=== PATIENT | female | born 1945 | race Caucasian/White ===

== ENCOUNTER → 2019-07-06 | Outpatient (CLI) | payer MEDICARE ==
[~2019-07-06] MED LIST: ALPRAZOLAM0.5 MG PO; AMIODARONE HCL200 MG PO; AMIODARONE PO; ATENOLOL50 MG PO; BYSTOLIC20 MG PO; COUMADIN2.5 MG PO; EC ASPIRIN325 MG; NORVASC5 MG PO; PRAVASTATIN SOD40 MG PO; PROPAFENONE HC225 MG PO; RYTHMOL225 MG PO; WARFARIN SODIU2.5 MG PO; Z RYTHMOL PO; Z.0.ATENOLOL50 MG PO; Z.0.BYSTOLIC10 MG PO; Z.0.COUMADIN10 MG; Z.0.COUMADIN2.5 MG PO; Z.0.COUMADIN5 MG PO; Z.0.XANAX0.25 MG PO
--- NOTE | 2019-07-07 09:02 | Diagnostic Imaging Report ---
Exam: Bone mineral density study. History: Osteopenia. Comparison: None Discussion: Evaluation of the left hip, and lumbar spine was performed utilizing DEXA Hologic bone densitometer. The study is technically adequate. Left hip total bone mineral density: 0.749gm/cm2, T-score is -1.6, Z-score is 0.2. Left hip femoral neck bone mineral density: 0.625gm/cm2, T-score is -2.0, Z-score is 0.1. Lumbar spine total bone mineral density:0.959gm/cm2, T-score is-0.8, Z-score is 1.6. Impression: 1. Osteopenia of the left hip, fracture risk is increased 2. Normal bone mineral density of the lumbar spine, fracture risk is not increased. Least significant change (LSC) for bone mineral density as provided by rush seater is 0.023 g/cm2 for lumbar spine and 0.027 g/cm2 for total hip. 10 -year fracture risk per WHO Fracture Risk Assessment Tool (FRAX) for: Major osteoporotic fracture is 21.0% Hip fracture is 12.0% The above fracture probability is calculated for an untreated patient. Fracture probably may be lower if the patient has received treatment. All treatment decisions require clinical judgment and consideration of individual patient factors, including patient preferences, comorbidities, previous drug use and risk factors not captured in the FRAX model (e.g. frailty, falls, vitamin D deficiency, increased bone turnover, interval significant decline in BMD). The patient's fracture risk is compared to an age-matched control. Medical evaluation for secondary causes of low bone bone mineral density may be appropriate. Correlate clinically for the necessity and timing of the next bone mineral density study. Signed by: Dr. Faheem Sanders M.D. on 07/07/2019 8:59 AM
--- NOTE | 2019-07-11 09:10 | Diagnostic Imaging Report ---
#[id number] - MGSCRBIL #BILATERAL DIGITAL SCREENING MAMMOGRAM WITH CAD: 07/06/2019 CLINICAL: Routine screening. No prior exams were available for comparison. Current study contains 7 films. The tissue of both breasts is heterogeneously dense. This may lower the sensitivity of mammography. Current study was also evaluated with a Computer Aided Detection (CAD) system. Benign appearing calcifications are noted bilaterally. There are clustered calcifications in the right breast central to the nipple anterior depth. There also are clustered calcifications in the right breast central to the nipple middle depth. There is a 1.7 cm oval mass in the left breast at 8 o'clock anterior depth. No other significant masses or calcifications are seen in either breast. IMPRESSION: INCOMPLETE: NEEDS ADDITIONAL IMAGING EVALUATION The clustered calcifications in the right breast central to the nipple anterior depth are indeterminate. Magnification views are recommended unless previous films are received and show no significant interval change. The clustered calcifications in the right breast central to the nipple middle depth are indeterminate. Magnification views are recommended unless previous films are received and show no significant interval change. The 1.7 cm oval mass in the left breast at 8 o'clock anterior depth is indeterminate. An ultrasound is recommended unless previous films are received and show no significant interval change. The patient will be contacted by the Mammography Department to schedule this appointment. HANNAH walker/kyra:07/08/2019 09:36:27 [employer]: Danya MENDIETA)(Cassandra), [facility] letter sent: Additional Imaging Needed Mammogram BI-RADS: 0 Indeterminate
== END ==
LOC: MAMMO 13:37
PROVIDERS: ATTEND Obstetrics & Gynecology
DX: Z12.31 Encounter for screening mammogram for malignant neoplasm of breast (principal); M85.88 Other specified disorders of bone density and structure, other site
CPT/HCPCS: 77067; 77080

== ENCOUNTER 2020-07-05 22:36 | Emergency (ER) | payer MEDICARE ==
[~2020-07-05] VITALS: Ht 165.1 cm; Wt 104.3 kg
--- NOTE | 2020-07-05 22:44 | Emergency Department Note ---
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 Any updates have been documented here. 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 Other Surgery: CARDIAC ABLATION Other Last Tetanus: UNKNOWN Review of Systems Review of Systems Constitutional: Reports fever, Reports malaise Respiratory: Reports cough Physical Exam Related Data Allergies: Coded Allergies: Penicillins (Verified Allergy, Unknown, 09/21/09) dabigatran etexilate mesylate (Verified Allergy, Unknown, 07/05/20) minocycline (Verified Allergy, Unknown, MAKES HER SIC, 07/05/20) strawberry (Verified Allergy, Unknown, 07/07/12) Uncoded Allergies: STERIODS (Allergy, Unknown, SWELLING, 07/05/20) STEROIDS (Allergy, Unknown, 09/21/09) Physical Exam CONSTITUTIONAL Constitutional: Present morbidly obese, Present ill appearing HENT HENT: Present normocephalic, Present atraumatic, Present oropharynx clear/moist, Present nose normal HENT L/R: Present left ext ear normal, Present right ext ear normal EYES Eyes: Reports PERRL, Reports conjunctivae normal NECK Neck: Present ROM normal PULMONARY Pulmonary: Present effort normal, Present breath sounds normal CARDIOVASCULAR Cardiovascular: Present regular rhythm, Present heart sounds normal, Present capillary refill normal, Present normal rate GASTROINTESTINAL Abdominal: Present soft, Present nontender, Present bowel sounds normal GENITOURINARY Genitourinary: Present exam deferred SKIN Skin: Present warm, Present dry MUSCULOSKELETAL Musculoskeletal: Present edema NEUROLOGICAL Neurological: Present alert, Present oriented x 3, Present no gross motor or sensory deficits PSYCHOLOGICAL Psychological: Present mood/affect normal, Present judgement normal Results Imaging Imaging results reviewed: Yes Impressions [place] [id number] Patient Name: JILLIAN OLIVEIRA MR #: [id number] : 1945 Age/Sex: 74/F Req #: [id number] Adm Physician: Ordered by: HANNAH OVALLE DO Report #: [id number] Location: ER Room/Bed: Procedure: [id number] DX/CHEST SINGLE (PORTABLE) Exam Date: 07/05/20 Exam Time: 2299 REPORT STATUS: Signed EXAMINATION: CHEST SINGLE (PORTABLE) INDICATION: ^Y ^ERMD ORDER ^[id number] ^2299 ^Y COMPARISON: None available FINDINGS: AP view TUBES and LINES: Dual-lead left chest wall cardiac device in place. LUNGS: Lungs are well inflated. Mild central vascular congestion. PLEURA: No significant pleural effusion or pneumothorax. HEART AND MEDIASTINUM: The cardiac silhouette is borderline in size. BONES AND SOFT TISSUES: No acute osseous lesion. Soft tissues are unremarkable. UPPER ABDOMEN: No free air under the diaphragm. IMPRESSION: Borderline enlarged cardiac silhouette and central vascular congestion. Underlying pneumonia in the perihilar regions cannot be excluded in the appropriate clinical context. Signed by: Dr. Dontae Serrato MD on 07/05/2020 11:35 PM Dictated By: DONTAE SERRATO MD 34 Transcribed By: ALEX on 07/05/202334 COPY TO: HANNAH OVALLE DO~ Assessment & Plan Medical Decision Making MDM Diff Dx: COVID-19 infection, pna, sepsis, acs, PE Assessment & Plan Final Impression: (1) URI (upper respiratory infection) Depart Disposition: HOME, SELF-intermediate Meds Reported Medications Nebivolol Hcl (BYSTOLIC) 20 Mg Tablet, 20 MG PO DAILY 03/25/16 Propafenone Hcl (RYTHMOL) 225 Mg Tablet, 225 MG PO TID 03/25/16 Atenolol (ATENOLOL) 50 Mg Tablet, 50 MG PO DAILY 03/25/16 Alprazolam (ALPRAZOLAM) 0.5 Mg Tablet, 0.5 MG PO DAILY PRN for ANXIETY, TAB 03/25/16 Warfarin Sodium (WARFARIN SODIUM) 2.5 Mg Tablet, 2.5 MG PO DAILY, #30 TAB 03/25/16 Amlodipine Besylate (NORVASC) 5 Mg Tab, 5 MG PO DAILY, #30 TAB 03/25/16 Medications in the ED Aspirin 81 mg PRN ONCE PO ; Start 07/05/20 at 22:45; Stop 07/05/20 at 22:46; Status HANNAH CARRION DO Jul 05, 2020 22:44
[2020-07-05] MEDS ORDERED: ASPIRIN 81 MG CHEW TAB PO ONE (22:45)
[2020-07-05 23:29] LABS: BASOPHILS # (AUTO) 0.1 (0.0-0.1); BASOPHILS % 0.9 % (0.0-1.0); EOSINOPHILS # (AUTO) 0.2 (0.0-0.4); EOSINOPHILS % 2.1 % (0.0-6.0); HEMATOCRIT 44.1 % (34.2-44.1); LYMPHOCYTES # (AUTO) 1.3 (1.0-3.2); LYMPHOCYTES % 13.2 % (18.0-39.1); MEAN CORPUSCULAR HEMOGLOBIN 30.7 pg (28-32); MEAN CORPUSCULAR VOLUME 90.2 fL (81-99); MONOCYTES # (AUTO) 0.6 (0.2-0.8); MONOCYTES % 6.3 % (4.4-11.3); NEUTROPHILS # (AUTO) 7.8 (2.1-6.9); NEUTROPHILS % 77.1 % (38.7-80.0); PLATELET COUNT 230 x10e3/uL (140-360); RED BLOOD COUNT 4.89 x10e6/uL (3.6-5.1); RED CELL DISTRIBUTION WIDTH 11.9 % (11.7-14.4)
--- NOTE | 2020-07-05 23:38 | Diagnostic Imaging Report ---
EXAMINATION: CHEST SINGLE (PORTABLE) INDICATION: ^Y ^ERMD ORDER ^[id number] ^2300 ^Y COMPARISON: None available FINDINGS: AP view TUBES and LINES: Dual-lead left chest wall cardiac device in place. LUNGS: Lungs are well inflated. Mild central vascular congestion. PLEURA: No significant pleural effusion or pneumothorax. HEART AND MEDIASTINUM: The cardiac silhouette is borderline in size. BONES AND SOFT TISSUES: No acute osseous lesion. Soft tissues are unremarkable. UPPER ABDOMEN: No free air under the diaphragm. IMPRESSION: Borderline enlarged cardiac silhouette and central vascular congestion. Underlying pneumonia in the perihilar regions cannot be excluded in the appropriate clinical context. Signed by: Dr. Dontae Schmid MD on 07/05/2020 11:35 PM
[2020-07-05 23:49] LABS: ALBUMIN 4.4 g/dL (3.5-5.0); ALBUMIN/GLOBULIN RATIO 1.6 (0.8-2.0); ANION GAP 15.3 mmol/L (8-16); CALCIUM 9.9 mg/dL (8.4-10.2); CREATININE, SERUM 0.98 mg/dL (0.57-1.11); POTASSIUM 4.3 mmol/L (3.5-5.1)
[2020-07-05 23:55] LABS: CREATINE KINASE MB 1.9 ng/mL (0-5.0)
[2020-07-06 00:24] VITALS: BP 165/84
== END 2020-07-06 00:38 | disposition home or self-care (01) ==
LOC: ER 22:54
DX: J06.9 Acute upper respiratory infection, unspecified (principal); R06.00 Dyspnea, unspecified; Z11.59 Encounter for screening for other viral diseases
CPT/HCPCS: 36415; 71045; 80053; 82550; 82553; 83880; 84484; 85025; 99284; U0002

== ENCOUNTER → 2020-08-22 | Outpatient (CLI) | payer MEDICARE | LOC: MAMMO 12:25 | PROVIDERS: ATTEND Obstetrics & Gynecology | DX: Z12.31 Encounter for screening mammogram for malignant neoplasm of breast (principal) | CPT/HCPCS: 77067 ==

== ENCOUNTER → 2021-07-02 | Outpatient (CLI) | payer MEDICARE ==
[~2021-07-02] MED LIST changes: +IOPAMIDOL 370 MG/ML 200 ML INFUS..BTL INJ ONE; +METOPROLOL TARTRATE INJ 1 MG/ML VIAL ONE; +NITROGLYCERIN 0.4 MG SUBL ONE; +SODIUM CHLORIDE 0.9% 100 ML ONE
== END ==
LOC: CT 08:15
PROVIDERS: ATTEND Internal Medicine Cardiovascular Disease
DX: R06.02 Shortness of breath (principal); R94.39 Abnormal result of other cardiovascular function study; I47.2 Ventricular tachycardia; I48.20 Chronic atrial fibrillation, unspecified
CPT/HCPCS: 75574; J7050; Q9967

== ENCOUNTER → 2022-11-27 | Outpatient (CLI) | payer MEDICARE ==
[~2022-11-27] MED LIST changes: -IOPAMIDOL 370 MG/ML 200 ML INFUS..BTL INJ ONE; -METOPROLOL TARTRATE INJ 1 MG/ML VIAL ONE; -NITROGLYCERIN 0.4 MG SUBL ONE; -SODIUM CHLORIDE 0.9% 100 ML ONE
== END ==
LOC: MAMMO 13:51
PROVIDERS: ATTEND Obstetrics & Gynecology
DX: Z12.31 Encounter for screening mammogram for malignant neoplasm of breast (principal)
CPT/HCPCS: 77067

== ENCOUNTER 2024-08-30 00:43 | Emergency (ER) | payer MEDICARE ==
[~2024-08-30] VITALS: Ht 165.1 cm; Wt 96.6 kg
[~2024-08-30 00:43] MED LIST changes: +AMBIEN10 MG PO; +ASPIRIN EC81 MG PO; +KEFLEX125 MG/5 M PO; +LISINOPRIL10 MG PO
[2024-08-30] MEDS: ACETAMINOPHEN 325 MG TAB PO ONE (02:56)
[2024-08-30 03:55] VITALS: BP 120/60; PULSE 65; RESP 18; TEMP 98.6; O2SAT 98
== END 2024-08-30 03:55 | disposition home or self-care (01) ==
LOC: FSED 00:54
DX: R50.9 Fever, unspecified (principal); R03.0 Elevated blood-pressure reading, without diagnosis of hypertension; I48.91 Unspecified atrial fibrillation; I50.9 Heart failure, unspecified; I10 Essential (primary) hypertension; E78.5 Hyperlipidemia, unspecified; R05.9 Cough, unspecified; Z11.52 Encounter for screening for COVID-19; R94.31 Abnormal electrocardiogram [ECG] [EKG]; Z95.810 Presence of automatic (implantable) cardiac defibrillator
CPT/HCPCS: 0223U; 70450; 71046; 80053; 81003; 82553; 83880; 84484; 85025; 87400; 87420; 93005; 99283

== ENCOUNTER 2025-06-03 15:41 | Observation (INO) | payer MEDICARE ==
[~2025-06-03] VITALS: Ht 165.1 cm; Wt 93.9 kg
[2025-06-03] MEDS ORDERED: SODIUM CHLORIDE 0.9% 1000ML 1,000 ML IV SCH (17:00)
[2025-06-03 18:03] VITALS: PULSE 63; RESP 18; TEMP 97.6
[2025-06-03] MEDS ORDERED: ULTRAM 50MG50 MG PO (21:46)
[2025-06-03 21:55] VITALS: BP 156/69; PULSE 64; RESP 18; TEMP 98.7; O2SAT 99
[2025-06-03 22:00] VITALS: BP 156/69; PULSE 64; RESP 18; TEMP 98.7; O2SAT 99
[2025-06-03] MEDS: LISINOPRIL 10 MG TAB PO SCH (23:08)
[2025-06-04 03:01] VITALS: BP 161/64; PULSE 67; RESP 18; TEMP 97.8; O2SAT 100
[2025-06-04] MEDS ORDERED: ACETAMINOPHEN 325 MG TAB PO PRN (06:00)
[2025-06-04] MEDS: HYDRALAZINE HCL 20 MG/ML VIAL IV PRN (06:21)
[2025-06-04 08:35] LABS: BASOPHILS % 0.9 % (0.0-1.0); EOSINOPHILS % 3.1 % (0.0-6.0); LYMPHOCYTES % 17.6 % (18.0-39.1); MONOCYTES % 9.7 % (4.4-11.3); NEUTROPHILS % 68.4 % (38.7-80.0); RED CELL DISTRIBUTION WIDTH 12.5 % (11.7-14.4)
[2025-06-04 09:20] VITALS: BP 164/78; PULSE 85; RESP 20; TEMP 97.8; O2SAT 98
[2025-06-04 10:04] LABS: EST GLOMERULAR FILTRATION RATE 75.0 ML/MIN (>=60)
[2025-06-04] MEDS: ATENOLOL 50 MG TAB PO SCH ×2 (10:57→17:00)
[2025-06-04 12:52] VITALS: BP 165/73; PULSE 86; RESP 20; TEMP 97.8; O2SAT 98
[2025-06-04] MEDS ORDERED: ZOLPIDEM TARTRATE 5 MG TAB PO PRN (14:45)
[2025-06-04] MEDS ORDERED: ALPRAZOLAM 0.5 MG TAB PO PRN (14:45)
[2025-06-04 16:15] VITALS: BP 143/69; PULSE 78; RESP 20; TEMP 97.9; O2SAT 100
[2025-06-04] MEDS: TRAMADOL HCL 50 MG TAB PO PRN (16:39)
[2025-06-04] MEDS: AMLODIPINE BESYLATE 5 MG TAB PO SCH (16:39)
[2025-06-04 20:00] VITALS: BP 128/59; PULSE 65; RESP 20; TEMP 98.1; O2SAT 100
[2025-06-04 21:00] VITALS: BP 133/88; PULSE 65; RESP 20; TEMP 98.1; O2SAT 100
[2025-06-04] MEDS ORDERED: ATENOLOL 50 MG TAB PO SCH (21:00)
[2025-06-05] VITALS: BP 131/53; PULSE 63; RESP 18; TEMP 98.4; O2SAT 99
[2025-06-05 08:00] VITALS: BP 133/70; PULSE 66; RESP 18; TEMP 98.5; O2SAT 100
[2025-06-05] MEDS: ASPIRIN 81 MG ENTERIC COATED PO SCH (08:23)
[2025-06-05 11:00] VITALS: BP 135/62; PULSE 68; RESP 16; TEMP 98.5; O2SAT 99
[2025-06-05] MEDS ORDERED: ATENOLOL 50 MG TAB PO SCH (17:00)
== END 2025-06-05 13:30 | disposition home or self-care (01) ==
LOC: FSED 16:04 → ERHOLD 16:14 → INTOOBSV 16:14 → ERHOLD 17:59 → MED/SURG2 21:22
PROVIDERS: ADMIT Internal Medicine; ATTEND Internal Medicine
DX: R55 Syncope and collapse (principal); I48.20 Chronic atrial fibrillation, unspecified; I11.0 Hypertensive heart disease with heart failure; I50.32 Chronic diastolic (congestive) heart failure; Z95.0 Presence of cardiac pacemaker; E66.9 Obesity, unspecified; Z68.34 Body mass index [BMI] 34.0-34.9, adult; I35.0 Nonrheumatic aortic (valve) stenosis; M47.9 Spondylosis, unspecified; M19.012 Primary osteoarthritis, left shoulder; M19.011 Primary osteoarthritis, right shoulder; R26.89 Other abnormalities of gait and mobility; K44.9 Diaphragmatic hernia without obstruction or gangrene; G47.00 Insomnia, unspecified; Z79.82 Long term (current) use of aspirin
CPT/HCPCS: 36415 ×2; 70450; 80053 ×2; 82550 ×2; 84484 ×3; 85025 ×2; 93005; 93306; 99284; G0378 ×3; J0360; J7030

== ENCOUNTER 2025-07-24 16:00 | Emergency (ER) | payer MEDICARE ==
[~2025-07-24] VITALS: Ht 165.1 cm; Wt 93.9 kg
[~2025-07-24 16:00] MED LIST changes: +ULTRAM 50MG50 MG PO
[2025-07-24 17:00] VITALS: PULSE 80; RESP 18; TEMP 98.5
[2025-07-24 17:47] LABS: BASOPHILS % 0.5 % (0.0-1.0); EOSINOPHILS % 0.9 % (0.0-6.0); LYMPHOCYTES % 10.1 % (18.0-39.1); MONOCYTES % 6.4 % (4.4-11.3); NEUTROPHILS % 81.8 % (38.7-80.0); RED CELL DISTRIBUTION WIDTH 12.4 % (11.7-14.4)
[2025-07-24 17:59] LABS: INR 1.04
[2025-07-24 18:10] LABS: EST GLOMERULAR FILTRATION RATE 64.0 ML/MIN (>=60)
[2025-07-24] MEDS ORDERED: ATENOLOL 100 MG TAB PO ONE (20:30)
[2025-07-24] MEDS: METOPROLOL TARTRATE INJ 1 MG/ML VIAL IV ONE (20:47)
[2025-07-24] MEDS: ATENOLOL 50 MG TAB PO ONE (20:52)
[2025-07-24 23:22] VITALS: BP 132/70; PULSE 115; RESP 20; O2SAT 99
== END 2025-07-24 23:20 | disposition home or self-care (01) ==
LOC: ER 19:37
DX: R06.02 Shortness of breath (principal); I48.20 Chronic atrial fibrillation, unspecified; I10 Essential (primary) hypertension; E78.5 Hyperlipidemia, unspecified; Z86.73 Personal history of transient ischemic attack (TIA), and cerebral infarction without residual deficits; Z95.0 Presence of cardiac pacemaker
CPT/HCPCS: 36415; 71046; 80053; 82550; 83880; 84484; 85025; 85610; 85730; 93005; 99284